=== PATIENT | female | born 2000 ===

== ENCOUNTER 2023-07-28 15:00 | Outpatient (REF) | payer BC, SELFPAY ==
[2023-07-30 14:40] LABS: GC Result Negative (Negative)
[2023-07-30 14:56] LABS: Chlamydia Result Positive (Negative)
== END 2023-07-28 15:01 | disposition home or self-care (01) ==
LOC: LBN 15:00
PROVIDERS: Visit Provider Advanced Practice Midwife
DX: Z11.3 Encounter for screening for infections with a predominantly sexual mode of transmission (principal); A74.9 Chlamydial infection, unspecified
CPT/HCPCS: 87491; 87591